=== PATIENT | female | born 1955 | race Caucasian/White ===

== ENCOUNTER 2017-01-27 06:06 | Emergency (ER) | payer OTHER ==
[~2017-01-27] VITALS: Ht 154.9 cm; Wt 56.8 kg
[2017-01-27 06:10] VITALS: BP 120/82; PULSE 99; RESP 18; O2SAT 99
--- NOTE | 2017-01-27 06:14 | ED.REPORT ---
HPI-Extremity Problem Lower Date of Service Jan 27, 2017 ED Provider: Obinna Murray Pt is an otherwise healthy 61 year old female with a history of kidney stones who presents to the ED complaining of bilateral lower flank pain onset 18:00 yesterday while at work. She c/o associated nausea, vomiting, bilateral hip pain , constipation,and diaphoresis. She denies diarrhea, urinary urgency, hematuria , abdominal pain, fever, leg pain, and any other symptoms. The pt reports that the pain is exacerbated with laying down. Pt denies a history of back surgery. She also admits to pacing. Nursing Notes Stated Complaint: HIP PAIN Chief Complaint: Back Pain or Injury Nursing Notes Reviewed: Yes Allergies: Coded Allergies: Tetracyclines (Verified Allergy, Unknown, 01/27/17) General Time Seen by MD: 06:13 Chief Complaint Other (Bilateral flank pain) Hx Obtained From: Patient Arrived By: Walk-in Onset Occurred: Yesterday Symptom Duration: Since onset Location: : Hip left: Hip right Quality: Painful Severity: Current: Moderate Severity: Maximum: Moderate Recent Healthcare: No recent doctor visit, No recent hospitalization Similar Sx Previous: No Past Medical History Past Medical History Kidney stones Denies: Congestive heart failure, Diabetes mellitus, Hypertension Past Surgical History Denies Smoking History Unknown if Ever Smoker Social History Alcohol Use: "Social" Drug Use: Denies drug use Other Social History: Good social support Ambulatory Status Independent Review of Systems + bilateral hip pain Constitutional: Denies: Fever Musculoskeletal: Denies: Extremity pain Skin: Reports Diaphoresis Complete sys rev & neg: except as marked. GI: Reports: Constipation, Nausea, Vomiting, Denies: Abdominal pain, Diarrhea Female: Reports: Flank pain, Denies: Hematuria, Urinary urgency Physical Exam Initial Vital Signs Vital Signs (First) Date Time Temp Pulse Resp B/P Pulse Ox O2 Delivery O2 Flow Rate FiO2 01/27/17 06:10 36.1 99 18 120/82 99 Room Air Initial VS: Reviewed Head / Eyes: Atraumatic, Normocephalic Neck: Supple, Full range of motion Respiratory: Breath sounds normal, Clear to auscultation, No respiratory distress Cardiovascular: Regular rate & rhythm, Heart sounds normal, Intact distal pulses Abdomen / GI: Soft, Non-tender Upper Extremities: Vascular intact, Neuro intact Skin: Warm, Dry, No cyanosis Neurologic: Alert, Oriented, Nonfocal Psychiatric: Mood/affect normal, Behavior normal Lower Extremity / Pelvis / MS: Atraumatic, Full range of motion Ankle / Foot: Atraumatic, Full range of motion General/Constitutional: Awake, Alert, Cooperative Interpretation & Diagnostics CT ABDOMEN AND PELVIS WITHOUT IV CONTRAST: IMPRESSION: Large amount of intracolonic stool. No appendicitis, diverticulitis , or mechanical small bowel obstruction. Incidental findings above. Please see final report for other non-emergent incidental findings. Transmitted to the ED at 06:57 by Azul Rios M.D. Lab Results Interpretation Result Diagram: 01/27/17 0642 01/27/17 0642 Test 01/27/17 06:42 01/27/17 08:00 White Blood Count 7.7th/mm3 (3.8-10.1) Red Blood Count 4.91mil/mm3 (3.90-5.20) Hemoglobin 15.0g/dL (12.0-15.6) Hematocrit 44.5% (35.0-46.0) Mean Corpuscular Volume 90.6fL (81-100) Mean Corpuscular Hemoglobin 30.5pg (27.0-35.0) Mean Corpuscular Hemoglobin Concent 33.7% (32.0-37.0) Red Cell Distribution Width 13.2% (12.3-15.4) Platelet Count 410bil/L (150-400) Neutrophils (%) (Auto) 83.5% (40-74) Lymphocytes (%) (Auto) 12.4% (14-46) Monocytes (%) (Auto) 3.4% (4-12) Eosinophils (%) (Auto) 0.3% (0-5) Basophils (%) (Auto) 0.3% (0-3) Sodium Level 139mEq/L (134-144) Potassium Level 3.8mEq/L (3.5-5.2) Chloride Level 100mEq/L (97-108) Carbon Dioxide Level 24mmol/L (18-29) Blood Urea Nitrogen 16mg/dL (8-27) Creatinine 0.69mg/dL (0.57-1.00) Estimat Glomerular Filtration Rate 124mL/min (>59) Glucose Level 149mg/dL (60-99) Calcium Level 9.2mg/dL (8.5-10.1) Total Bilirubin 0.5mg/dL (0.0-1.2) Aspartate Amino Transf (AST/SGOT) 25U/L (0-50) Alanine Aminotransferase (ALT/SGPT) 29U/L (0-32) Alkaline Phosphatase 69U/L (25-165) Total Protein 7.6g/dL (6.4-8.4) Albumin 4.3g/dL (3.4-5.0) Re-Eval/Medical Decision Med Decision/Clinical Course Despite the negative CT, her symptoms are completely consistent with ureteral colic. She also has microscopic hematuria. Her pain is completely resolved at this time. 8:51 AM. I think empiric therapy with copious oral hydration, nonsteroidal anti-plantar medications as well as narcotic analgesia with watchful waiting over the next few days is the appropriate next step. Source of Hx: Old records Re-Evaluation/Progress : Time of Eval: 08:43 Re-Evaluation/Progress Note: Pt rechecked. Informed pt of plan for discharge. Pt understands and agrees with plan for discharge. F/U instructions and RTER warnings given. All questions addressed. Counseled Regarding: Diagnosis, Lab results, Need for follow-up, When/why to return to ED Discharge & Departure Impression: Primary Impression: Ureteral colic Additional Impression: Microscopic hematuria Disposition: Home Discharge Condition All VS Reviewed: Yes Condition: Stable Patient Instructions: Renal Colic (ED) Additional Instructions: I suspect that the symptoms you were experiencing are related to a kidney stone. The CT scan, however, did not show evidence of renal stones. The urine did show microscopic blood. For now I recommended watchful waiting with the following treatments: Copious oral hydration Ibuprofen 600 mg every 8 hours Hydrocodone/APAP 5/325 one or 2 tablets every 4 hours as needed for more severe pain. Ondansetron as needed for nausea. Follow-up next week if symptoms persist any significant degree. Follow-up right away for excessive vomiting or high fever. Referrals: [facility] Attestation Portions of this note were transcribed by Sophie Suarez. I, Dr. Murray personally performed the history, physical exam and medical decision-making; I reviewed and confirmed the accuracy of the information in the transcribed note. Signed by: Jakub Osman, 01/27/17 and 07:50. copies to: [facility] Obinna Murray MD Jan 27, 2017 06:14 Sophie Spencer Jan 27, 2017 06:27
[2017-01-27] MEDS ORDERED: 0.9% Sodium Chloride 1,000 ML IV ONE (06:29)
[2017-01-27] MEDS ORDERED: HYDROmorphone 0.5 mg/0.5 mL iSecure Syringe IVPUSH PRN (06:30)
[2017-01-27] MEDS ORDERED: Ondansetron 2 mg/mL 2 mL Inj IVPUSH PRN (06:30)
[2017-01-27 07:03] LABS: BASOPHILS % (AUTO) 0.3 % (0-3); EOSINOPHILS % (AUTO) 0.3 % (0-5); MONOCYTES % (AUTO) 3.4 % (4-12); Mean Corpuscular Hemoglobin 30.5 pg (27.0-35.0); Mean Corpuscular Volume 90.6 fL (81-100); NEUTROPHILS % (AUTO) 83.5 % (40-74); Platelet Count 410 bil/L (150-400)
--- NOTE | 2017-01-27 08:39 | DRSVH ---
PROCEDURE: CT KUB ([id number]) INDICATIONS: left flank pain TECHNIQUE: Noncontrast 5 mm thick sections acquired from the diaphragms to the symphysis. 5 mm thick coronal an d sagittal reformats were then performed. For radiation dose reduction, the following was used: aut omated exposure control, adjustment of mA and/or kV according to patient size. COMPARISON: None. FINDINGS: Image quality: Excellent. Lung bases: A 4 mm in diameter groundglass nodule is partially characterized at the right lung base ( series 3, image one). A 5 mm diameter pulmonary nodule is present at the left lung base (series 3, im age 4). There is a small hiatal hernia. Urinary system: Both kidneys are normal in size. No kidney stones. No hydronephrosis or perinephri c fat stranding. Both ureters appear non-dilated throughout their expected courses. Bladder wall th ickness is normal; no calcified bladder stones. Other solid organs: Liver and spleen are normal in size. Gallbladder is unremarkable. Pancreas is normal in contours. No adrenal nodules. Peritoneum and bowel: Unenhanced bowel loops demonstrate normal wall thickness and caliber. The appe ndix is thin walled and gas filled. No free fluid or air. Nodes and vessels: No retroperitoneal or mesenteric adenopathy by size criteria. Aorta and inferior vena cava are normal in caliber. Abdominal wall: No ventral hernias. Pelvis: There is trace low density free pelvic fluid. No inguinal hernias or adenopathy. Bones: No suspicious bony lesions. No vertebral body compression fractures. There is grade I L4 an d L5 anterolisthesis. No spondylolysis. IMPRESSION: 1. No hydronephrosis, nephrolithiasis, hydroureter, or ureterolithiasis. 2. No acute intra-abdominal findings. Normal appendix. These findings are concordant with the overnight interpretation. Dictated by: Ruth Licea M.D. on 01/27/2017 at 8:33 Approved by: Ruth Licea M.D. on 01/27/2017 at 8:37
[2017-01-27] MEDS ORDERED: HYDR-4003 PO (08:58)
[2017-01-27] MEDS ORDERED: ONDA4TAB9 PO (08:58)
[2017-01-27 09:08] VITALS: BP 107/74; PULSE 72; RESP 18; O2SAT 97
[2017-01-27 09:10] LABS: APPEARANCE,URINE HAZY (CLEAR,HAZY); COLOR,URINE YELLOW (YELLOW); OCCULT BLOOD,URINE TRACE (NEGATIVE); UROBILINOGEN,URINE NORMAL (NORMAL)
== END 2017-01-27 09:05 | disposition home or self-care (01) ==
LOC: SED 06:06
DX: N23 Unspecified renal colic (principal); R31.29 Other microscopic hematuria; Z88.8 Allergy status to other drugs, medicaments and biological substances; Z87.442 Personal history of urinary calculi
CPT/HCPCS: 36415; 74176; 80053; 81000; 85025; 96374; 96375; 99285; J1170; J1885; J2405; J7030